=== PATIENT | male | born 1990 | race African-American/Black ===

== ENCOUNTER 2023-06-08 12:34 | Emergency (ER) | payer MEDICAID ==
[~2023-06-08] VITALS: Ht 193 cm; Wt 100.0 kg
[2023-06-08 12:43] VITALS: BP 124/72; PULSE 82; RESP 16; TEMP 98.4; O2SAT 100
[2023-06-08] MEDS ORDERED: ACETAMINOPHEN 325MG TABLET PO NR (14:00)
[2023-06-08] MEDS ORDERED: LIDOCAINE 5% PATCH TOP SCH (14:15)
[2023-06-08 15:10] LABS: BASOPHILS % 0.5 % (0.0-2.0); EOSINOPHILS % 3.2 % (0.0-5.0); HEMATOCRIT. 42.5 % (42.0-52.0); HEMOGLOBIN. 14.3 g/dL (14.0-18.0); LYMPHOCYTES % 27.8 % (20.0-50.0); MEAN CORPUSCULAR HEMOGLOBIN 30.9 pg (28.0-32.0); MEAN CORPUSCULAR HGB CONC 33.5 g/dL (31.0-37.0); MEAN CORPUSCULAR VOLUME 92.2 fL (80.0-94.0); MEAN PLATELET VOLUME 8.5 fl (7.4-10.4); MONOCYTES % 6.6 % (2.0-8.0); NEUTROPHILS % 61.9 % (40.0-76.0); PLATELET 156 x1000/uL (130-400); RED BLOOD CELL COUNT 4.61 mill/uL (4.7-6.1); RED CELL DISTRIBUTION WIDTH 13.8 % (11.6-14.6); WHITE BLOOD COUNT 5.2 x1000/uL (4.5-11.0)
[2023-06-08 15:27] LABS: ALANINE AMINOTRANSFERASE 16 IU/L (10-49); ASPARTATE AMINOTRANSFERASE 20 IU/L (<34); BILIRUBIN TOTAL 0.7 mg/dL (0.1-1.0); CALCIUM 8.8 mg/dL (8.7-10.4); CARBON DIOXIDE 23 mEq/L (21-32); CHLORIDE 106 mEq/L (98-107); GLUCOSE 89 mg/dL (70-105); POTASSIUM 4.1 mEq/L (3.5-5.1); PROTEIN TOTAL 6.9 g/dL (6.0-8.3); SODIUM 138 mEq/L (136-145); UREA NITROGEN BLOOD 18 mg/dL (9-23)
[2023-06-08 15:30] LABS: TROPONIN I HIGH SENSITIVITY < 4 ng/L (3.0-53)
== END 2023-06-08 17:02 | disposition home or self-care (01) ==
LOC: ER 12:34
DX: M54.50 Low back pain, unspecified (principal); I49.9 Cardiac arrhythmia, unspecified
CPT/HCPCS: 36415; 71045; 80053; 84484; 85025; 93005; 99291